=== PATIENT | female | born 1970 | race Caucasian/White ===

== ENCOUNTER 2020-09-02 13:48 | Emergency (ER) | payer OTHER, SELFPAY ==
[2020-09-02 13:49] VITALS: BP 150/99; PULSE 86; RESP 18; TEMP 36.2; O2SAT 96; BMI 36.1
[2020-09-02 15:41] VITALS: O2SAT 95
--- NOTE | 2020-09-02 15:55 | RAD_ITS ---
HISTORY: COUGH, SORE RIBS, FEVERS THROUGHOUT, SORE THROAT, LOST TASTE AND SMELL BUT BACK NOW ADDITIONAL HISTORY: None provided. EXAMINATION/TECHNIQUE: XR Chest 1 View AP/PA Number of images including paperwork: 1 COMPARISON: None FINDINGS: LUNGS AND PLEURA: Patchy airspace opacities in the left midlung and at the right base. No dense consolidation. No sizable pleural effusion or pneumothorax. CARDIAC SILHOUETTE: Prominent, magnified in this projection. MEDIASTINUM AND MATI: Unremarkable. UPPER ABDOMEN: Unremarkable. SKELETON AND SOFT TISSUES: No acute skeletal findings. Degenerative changes. OTHER DEVICES AND HARDWARE: None. RAD/Chest 1 View (Portable) IMPRESSION: Bilateral infiltrates concerning for infection. COVID 19 infection possible. at 1614 Reported and signed by: Yamileth Granado MD Electronically Signed: Yamileth Granado MD at 16:13 EDT Tel , Service support ,
--- NOTE | 2020-09-02 15:58 | ED.VIS.FLU ---
History of Present Illness Chief Complaint: Cough Informant: Patient Onset: Days Context: Gradual Onset Timing: Continuous Worsened by: Nothing Relieved by: Nothing Associated Symptoms: Bloody Sputum, Chills, Cough, Fever, Sore throat Chest Pain: Aching Narrative: Patient is a 49-year-old female that denies any past medical history presenting with 1-1/2 weeks of flulike symptoms. Patient states her symptoms seem to be worsening. She has had associated cough, chest congestion, shortness of breath and diarrhea. She also has had sore throat, fever and chills. She states that her ribs hurt because she has been coughing so much. She notes that she previously lost her sense of taste and smell that has returned. Her temperature has been as high as 100.7. Her has the same symptoms at home. She is tried some home remedies including essential oils and steam with no significant relief. She did try Mucinex last night which was not helpful either. She denies any swelling of her extremities. She has a history of DVT or PE. Because her symptoms are persisting and she feels that she is getting worse they came to the emergency room to be evaluated. Past Medical History - Allergies and Home Meds Allergies/Adverse Reactions: Allergies Penicillins Allergy (Verified 09/02/20 13:53) NEEDS FOLLOW-UP Sulfa (Sulfonamide Antibiotics) Allergy (Verified 09/02/20 13:53) NEEDS FOLLOW-UP Primary Care Physician: Tor Huber DO [Primary Care Provider] - Past Medical History: None Surgical History: noncontributory Lives: Spouse/ Significant Other Smoking Status: Former smoker Review of Systems General: Reports: Chills, Fever, Malaise. Denies: Sweats ENT: Reports: Sore throat. Denies: Bilateral ear pain, Rhinorrhea Cardiovascular: Reports: - - Rib pain with coughing. Denies: Chest pain, Palpitations Respiratory: Reports: Dyspnea, Cough, Sputum. Denies: Dyspnea on exertion Gastrointestinal: Reports: Diarrhea. Denies: Abdominal pain, Nausea, Vomiting, Melena, Hematochezia Genitourinary: Denies: Dysuria, Hematuria, Frequency Musculoskeletal: Denies: Myalgias, Arthralgias, Extremity Pain Skin: Denies: Rash Neurological: Denies: Headache, Weakness, Numbness Physical Exam Vital Signs/Narrative: Vital Signs Temp Pulse Resp BP Pulse Ox 10/18/20 13:49 97.2 F L 86 18 150/99 H 96 Inital Vital Signs reviewed: Yes General: Well nourished, Well developed Head: Normocephalic, Atraumatic Eyes: Perrl, EOMI ENT: Moist mucous membranes. Negative for: Rhinorrhea Neck: Supple, Nontender Cardiovascular: Regular rate, Regular rhythm, No murmurs Respiratory: No Stridor, Chest nontender, - - Diffuse crackles throughout. Negative for: Rhonchi, Wheezing, Diminished, Decreased Air Movement Abdomen: Soft, Nontender, Nondistended, Normal bowel sounds Back: Nontender, Normal Inspection Extremities: Nontender, No edema Skin: Normal color, No rash Neurological: Alert, Oriented x3, Cranial nerves II-XII grossly intact, Normal Strength, Normal Sensation Psychological: Normal affect Diagnostic/Tx/Re-eval Clinical Impression(s) from Imaging Studies Chest X-Ray 09/02/20 15:55 IMPRESSION: Bilateral infiltrates concerning for infection. COVID 19 infection possible. at 1614 Reported and signed by: Yamileth Granado MD Electronically Signed: Yamileth Granado MD at 16:13 EDT Tel , Service support , - Medical Decision Making Patient evaluated for continued respiratory symptoms in the setting of viral syndrome. Her had similar symptoms. Her history is highly concerning for coronavirus 19 infection. Chest x-ray is also consistent with this. Patient is ambulated emergency room and does not have any desaturation. I think at this time she is stable for outpatient follow-up and not require admission. She is otherwise well-appearing does not appear dehydrated. I do not think lab work is indicated. Patient is counseled that there is a chance that she could get worse over the next few days and might need to return to the ER. She does verbalize agreement understanding with this. She is discharged with Tessalon Perles to help with her cough. Patient is counseled on signs and symptoms requiring return to the emergency room. Patient verbalizes agreement and understand this plan. Patient discharged home in stable and improved condition. ED Disposition - Plan for ED Patient: Disposition: Home or Assisted Living Diagnosis: Suspected COVID-19 virus infection Instructions: ED PNEUMONITIS Adult Prescriptions: Benzonatate [Tessalon Perle] 200 mg PO TID PRN PRN #20 cap PRN Reason: Cough Prescription Printed Referrals: Tor Huber DO [Primary Care Provider] - Additional Instructions: Alternate Tylenol and ibuprofen as needed for fever and discomfort. If you start having signs of dehydration or worsening respiratory symptoms please return to the emergency room for further evaluation. At this time you do not require admission.
== END 2020-09-02 17:33 | disposition home or self-care (01) ==
PROVIDERS: Emergency Provider Emergency Medicine; PCP Family Medicine
DX: U07.1 COVID-19 (principal); Z88.0 Allergy status to penicillin; Z88.2 Allergy status to sulfonamides; Z87.891 Personal history of nicotine dependence
CPT/HCPCS: 71045; 87635; 94760; 99282; 99283; U0003

== ENCOUNTER → 2023-10-24 | Outpatient (CLI) | payer SELFPAY, OTHER ==
--- NOTE | 2023-10-24 09:04 | RAD_ITS ---
STUDY: X-RAY CHEST REASON FOR EXAM: Female, 53 years old. ACUTE COUGH TECHNIQUE: PA and lateral views of the chest. COMPARISON: 09/02/2020 FINDINGS: The lungs are clear and expanded. There is no demonstrated pleural abnormality. Normal size heart. Normal mediastinum and bill. Normal visualized pulmonary arteries. Normal visualized aortic arch and descending thoracic aorta. Normal visualized thoracic spine. Normal visualized ribs, clavicles, and shoulders. There is no demonstrated abnormality of the visualized soft tissue structures of the upper abdomen. RAD/Chest PA and Lateral IMPRESSION: Normal x-ray examination of the chest. Electronically Signed: Mike Figueroa MD at 21:05 EST ,
== END | disposition home or self-care (01) ==
PROVIDERS: PCP Family Medicine; Referring Provider Nurse Practitioner Family; Visit Provider Nurse Practitioner Family
DX: R05.1 Acute cough (principal)
CPT/HCPCS: 71046